=== PATIENT | male | born 1995 | race Caucasian/White ===

== ENCOUNTER 2018-04-02 08:38 | Emergency (ER) | payer MEDICAID ==
[~2018-04-02] VITALS: Ht 172.7 cm; Wt 110.0 kg
[2018-04-02] MEDS ORDERED: ONDANSETRON HCL 4MG/2ML INJ IV STA (08:59)
[2018-04-02] MEDS ORDERED: SODIUM CHLORIDE 0.9% 1,000 ML IV ONE (08:59)
[2018-04-02] MEDS ORDERED: KETOROLAC 30MG/ML VIAL IV STA (08:59)
[2018-04-02] MEDS ORDERED: MORPHINE SULFATE 4 MG/ML CPJ (NOT FOR IM USE) IV STA (08:59)
[2018-04-02 09:22] LABS: BASOPHILS % 0.5 % (0.0-2.0); HEMATOCRIT. 50.1 % (42.0-52.0); HEMOGLOBIN. 17.1 g/dL (14.0-18.0); LYMPHOCYTES % 14.5 % (20.0-50.0); MEAN CORPUSCULAR HEMOGLOBIN 29.1 pg (28.0-32.0); MEAN CORPUSCULAR VOLUME 85.3 fL (80.0-94.0); MONOCYTES % 6.5 % (2.0-8.0); NEUTROPHILS % 74.5 % (40.0-76.0); RED BLOOD CELL COUNT 5.87 mill/uL (4.7-6.1); RED CELL DISTRIBUTION WIDTH 13.8 % (11.6-14.6)
[2018-04-02 09:28] LABS: CHLORIDE 103 mEq/L (98-107)
[2018-04-02 09:31] LABS: INR 1.3; PROTHROMBIN TIME 13.4 sec (9.1-11.1)
[2018-04-02 09:47] LABS: PLATELET 297 x1000/uL (130-400)
[2018-04-02 10:06] LABS: CLARITY URINE CLEAR (CLEAR); COLOR URINE YELLOW (YELLOW); KETONES URINE NEGATIVE (NEGATIVE); LEUKOCYTE ESTERASE URINE NEGATIVE (NEGATIVE); NITRITE URINE NEGATIVE (NEGATIVE); OCCULT BLOOD URINE NEGATIVE (NEGATIVE); PH URINE 5.5 (4.5-8.0); PROTEIN URINE NEGATIVE (NEGATIVE); SPECIFIC GRAVITY URINE 1.021 (1.005-1.030)
[2018-04-02 10:29] LABS: *AMPHETAMINES SCREEN URINE NEGATIVE (NEGATIVE); *BARBITURATES SCREEN URINE NEGATIVE (NEGATIVE); *BENZODIAZEPINES SCREEN URINE NEGATIVE (NEGATIVE); *COCAINE SCREEN URINE NEGATIVE (NEGATIVE); METHADONE URINE SCREEN NEGATIVE (NEGATIVE); OPIATES URINE SCREEN NEGATIVE (NEGATIVE)
[2018-04-02 10:30] LABS: CANNABINOID URINE SCREEN NEGATIVE (NEGATIVE); PHENCYCLIDINE URINE SCREEN NEGATIVE (NEGATIVE)
[2018-04-02] MEDS ORDERED: HYDROCODONE/ACETAMINOPHEN 5/325MG TABLET PO ONE (11:00)
[2018-04-02 12:14] VITALS: BP 128/80
== END 2018-04-02 12:17 | disposition home or self-care (01) ==
LOC: ER 08:38
DX: K80.20 Calculus of gallbladder without cholecystitis without obstruction (principal); K76.0 Fatty (change of) liver, not elsewhere classified; J45.909 Unspecified asthma, uncomplicated; Z88.1 Allergy status to other antibiotic agents
CPT/HCPCS: 36415; 76705; 80053; 80305; 81003; 83690; 85025; 85610; 96374; 96375; 99284; J1885; J2270; J2405; J7030

== ENCOUNTER 2020-02-24 11:22 | Emergency (ER) | payer MEDICAID ==
[~2020-02-24] VITALS: Ht 170.2 cm; Wt 91.0 kg
[2020-02-24] MEDS ORDERED: ACETAMINOPHEN 325MG TABLET PO ONE (11:45)
[2020-02-24] MEDS ORDERED: HYDROXYZINE 25MG TABLET PO ONE ×2 (11:45→12:30)
[2020-02-24 14:09] VITALS: BP 122/50
== END 2020-02-24 14:09 | disposition home or self-care (01) ==
LOC: ER 11:38
DX: J18.9 Pneumonia, unspecified organism (principal); F41.9 Anxiety disorder, unspecified; J45.909 Unspecified asthma, uncomplicated; Z88.1 Allergy status to other antibiotic agents
CPT/HCPCS: 71045; 93005; 99283

== ENCOUNTER 2020-03-18 23:44 | Emergency (ER) | payer MEDICAID ==
[~2020-03-18] VITALS: Ht 177.8 cm; Wt 109.0 kg
[2020-03-19] MEDS ORDERED: ASPIRIN 81MG TABLET PO ONE
[2020-03-19 00:14] VITALS: BP 132/80
[2020-03-19 00:47] LABS: CHLORIDE 106 mEq/L (98-107)
[2020-03-19 00:48] LABS: BASOPHILS % 0.4 % (0.0-2.0); EOSINOPHILS % 4.3 % (0.0-5.0); HEMATOCRIT. 52.7 % (42.0-52.0); HEMOGLOBIN. 17.6 g/dL (14.0-18.0); LYMPHOCYTES % 18.9 % (20.0-50.0); MEAN CORPUSCULAR HEMOGLOBIN 28.1 pg (28.0-32.0); MEAN PLATELET VOLUME 9.1 fl (7.4-10.4); MONOCYTES % 6.9 % (2.0-8.0); NEUTROPHILS % 69.5 % (40.0-76.0); PLATELET 265 x1000/uL (130-400); RED BLOOD CELL COUNT 6.27 mill/uL (4.7-6.1); RED CELL DISTRIBUTION WIDTH 13.7 % (11.6-14.6)
== END 2020-03-19 03:31 | disposition home or self-care (01) ==
LOC: ER 23:44
DX: R07.89 Other chest pain (principal); R20.0 Anesthesia of skin; J45.909 Unspecified asthma, uncomplicated; Z88.1 Allergy status to other antibiotic agents
CPT/HCPCS: 36415; 71045; 80053; 83880; 84484; 85025; 85379; 99284; Z7610

== ENCOUNTER 2023-11-17 06:54 | Emergency (ER) | payer MEDICAID ==
[~2023-11-17] VITALS: Ht 172.7 cm; Wt 120.0 kg
[2023-11-17 06:57] VITALS: BP 126/81; PULSE 86; RESP 16; TEMP 98.1; O2SAT 100
[2023-11-17] MEDS: MAGNESIUM/ALUMINUM HYDROXIDE/SIMETHICONE 30ML UDC PO ONE (07:53)
[2023-11-17] MEDS: FAMOTIDINE 20MG TABLET PO ONE (07:53)
[2023-11-17] MEDS ORDERED: FAMO-135 MT (09:29)
[2023-11-17] MEDS ORDERED: MAG355OR21 MT (09:29)
== END 2023-11-17 10:06 | disposition home or self-care (01) ==
LOC: ER 06:54
DX: K21.9 Gastro-esophageal reflux disease without esophagitis (principal); J45.909 Unspecified asthma, uncomplicated; Z87.19 Personal history of other diseases of the digestive system
CPT/HCPCS: 99283